=== PATIENT | female | born 1970 | race Caucasian/White ===

== ENCOUNTER 2018-05-13 01:40 | Emergency (ER) | payer BC ==
[~2018-05-13] VITALS: Ht 154.9 cm; Wt 72.6 kg
--- NOTE | 2018-05-13 01:40 | NUR ---
PT BIBA BLS. TAKEN TO BED 9
--- NOTE | 2018-05-13 01:41 | NUR ---
Dr. Rai evaluating patient at bedside.
--- NOTE | 2018-05-13 01:42 | NUR ---
47/F BIB CARE, S/P MECHANICAL SLIP AND FALL FROM STAIRS (6 STEPS). DENIES LOC, N/V. PT STATED THAT SHE DOES NOT REMEMBER IF SHE HIT HER HEAD. PT ARRIVES WITH C-COLLAR IN PLACE. PT REPORTS R SIDED NECK PAIN. 3CM X 2CM R ELBOW ABRASION NOTED. PT REPORTS ETOH USE (BACARDI AND DIET COKE). PT AOX4, GCS 15, RR EVEN AND UNLABORED. LUNG SOUNDS CLEAR BL. BS ACTIVE X4, ABD SOFT ROUND NONTENDER. HX HYSTERECTOMY
[2018-05-13 01:47] VITALS: BP 152/93
[2018-05-13] MEDS ORDERED: BACITRACIN OINT 500 UNITS/GM PKT TP ONE (02:05)
--- NOTE | 2018-05-13 02:24 | NUR ---
PT TAKEN TO RADIOLOGY
--- NOTE | 2018-05-13 02:47 | NUR ---
PT RETURN FROM RADIOLOGY
[2018-05-13] MEDS ORDERED: IBUPROFEN 800 MG TAB PO ONE (03:25)
[2018-05-13 03:31] VITALS: BP 120/54
== END 2018-05-13 03:31 | disposition home or self-care (01) ==
LOC: MED 01:40
DX: S16.1XXA Strain of muscle, fascia and tendon at neck level, initial encounter (principal); S50.311A Abrasion of right elbow, initial encounter; R03.0 Elevated blood-pressure reading, without diagnosis of hypertension; Z88.2 Allergy status to sulfonamides; Z88.1 Allergy status to other antibiotic agents; Z88.8 Allergy status to other drugs, medicaments and biological substances; W10.8XXA Fall (on) (from) other stairs and steps, initial encounter; Y93.01 Activity, walking, marching and hiking; Y92.89 Other specified places as the place of occurrence of the external cause; Y99.8 Other external cause status
CPT/HCPCS: 72040; 99283